=== PATIENT | female | born 1985 | race Asian ===

== ENCOUNTER 2017-11-28 18:03 | Emergency (ER) | payer MEDICAID ==
[~2017-11-28] VITALS: Ht 162.6 cm; Wt 56.0 kg
[2017-11-28] MEDS ORDERED: ZIPR20CA2 PO (19:05)
[2017-11-28] MEDS ORDERED: ziprasidone 20mg capsule PO ONE (19:11)
[2017-11-28 19:26] VITALS: BP 111/72
== END 2017-11-28 19:33 | disposition home or self-care (01) ==
LOC: ER 18:04
DX: F20.9 Schizophrenia, unspecified (principal); F31.9 Bipolar disorder, unspecified; F15.10 Other stimulant abuse, uncomplicated; R06.02 Shortness of breath; Z76.0 Encounter for issue of repeat prescription
CPT/HCPCS: 99283; 99284

== ENCOUNTER 2017-12-17 11:18 | Emergency (ER) | payer MEDICAID ==
[~2017-12-17] VITALS: Ht 162.6 cm; Wt 59.2 kg
[~2017-12-17 11:18] MED LIST: ZIPR20CA2 PO
[2017-12-17 11:24] VITALS: BP 116/76
[2017-12-17] MEDS ORDERED: ZIPR20CA2 PO (11:56)
== END 2017-12-17 12:04 | disposition home or self-care (01) ==
LOC: ER 11:19
DX: F20.9 Schizophrenia, unspecified (principal); F31.9 Bipolar disorder, unspecified; F15.90 Other stimulant use, unspecified, uncomplicated; Z79.899 Other long term (current) drug therapy
CPT/HCPCS: 99283

== ENCOUNTER 2018-01-03 19:06 | Emergency (ER) | payer MEDICAID ==
[~2018-01-03] VITALS: Ht 162.6 cm; Wt 59.0 kg
[2018-01-03 19:12] VITALS: BP 121/82
[2018-01-03] MEDS ORDERED: ziprasidone 20mg capsule PO SCH (20:30)
[2018-01-03] MEDS ORDERED: ziprasidone 20mg capsule PO ONE (20:30)
== END 2018-01-03 20:45 | disposition home or self-care (01) ==
LOC: ER 19:06
DX: F20.9 Schizophrenia, unspecified (principal); F31.9 Bipolar disorder, unspecified; F15.90 Other stimulant use, unspecified, uncomplicated; Z76.0 Encounter for issue of repeat prescription
CPT/HCPCS: 99284

== ENCOUNTER 2018-03-30 16:02 | Emergency (ER) | payer MEDICAID ==
[~2018-03-30] VITALS: Ht 162.6 cm; Wt 59.0 kg
[2018-03-30 17:12] LABS: CLARITY,URINE CLOUDY (Clear); COLOR,URINE YELLOW (Yellow); GLUCOSE, URINE NEGATIVE (Neg); KETONES,URINE NEGATIVE (Neg); LEUKOCYTE ESTERASE ,URINE LARGE (Neg); NITRITES, URINE NEGATIVE (Neg); OCCULT BLOOD,URINE NEGATIVE (Neg); PROTEIN,URINE NEGATIVE (Neg); UROBILINOGEN,URINE 0.2 E.U/dL (0.2-1.0)
[2018-03-30 17:13] LABS: URINE HCG POSITIVE (NEG)
[2018-03-30 17:14] LABS: BASOPHILS # (AUTO) 0.1 X10'3 (0-0.2); EOSINOPHILS # (AUTO) 0.2 X10'3 (0-0.9); EOSINOPHILS % (AUTO) 2.5 % (0-6); HEMATOCRIT 36.5 % (35.0-45.0); HEMOGLOBIN 12.3 g/dl (12.0-16.0); LYMPHOCYTES # (AUTO) 2.3 X10'3 (1.1-4.8); LYMPHOCYTES % (AUTO) 29.4 % (21-51); MEAN CORPUSCULAR HEMOGLOBIN 27.2 PG (27.0-31.0); MEAN CORPUSCULAR HGB CONC 33.8 g/dL (33.0-36.5); MEAN CORPUSCULAR VOLUME 80.6 FL (78-98); MONOCYTES # (AUTO) 0.6 X10'3 (0-0.9); MONOCYTES % (AUTO) 8.1 % (2-12); NEUTROPHILS # (AUTO) 4.6 X10'3 (1.8-7.7); PLATELET COUNT 374 X10'3 (140-440); RED BLOOD COUNT 4.53 X10'6 (4.20-5.60); RED CELL DISTRIBUTION WIDTH 15.3 % (11.5-14.5); WHITE BLOOD COUNT 7.7 X10'3 (4.5-11.0)
[2018-03-30 17:15] LABS: UA COLLECTION TYPE VOIDED
[2018-03-30 17:17] LABS: MUCUS STRANDS MODERATE /LPF (Neg); SQUAMOUS EPITHELIAL CELL,UR MODERATE /LPF (FEW); WBC,URINE 20-30 /HPF (0-4)
[2018-03-30 17:18] LABS: BACTERIA,URINE 2+ /HPF (Neg); RBC,URINE 0-2 /HPF (0-2)
[2018-03-30 17:30] LABS: ALANINE AMINOTRANSFERASE 15 U/L (12-78); ALBUMIN 3.5 G/DL (3.4-5.0); ALBUMIN/GLOBULIN RATIO 0.9 (1.1-1.5); ALKALINE PHOSPHATASE 99 IU/L (46-116); ANION GAP 11 (8-16); ASPARTATE AMINO TRANSFERASE 12 U/L (10-37); BILIRUBIN,TOTAL 0.2 MG/DL (0.1-1.0); BLOOD UREA NITROGEN 8 MG/DL (7-18); BUN/CREATININE RATIO 10.3 (6.6-38.0); CALCIUM 8.7 MG/DL (8.5-10.1); CHLORIDE 105 MMOL/L (99-107); CREATININE 0.78 MG/DL (0.40-0.90); GLUCOSE 92 MG/DL (70-104); POTASSIUM 3.5 MMOL/L (3.5-5.1); SODIUM 143 MMOL/L (135-145); TOTAL CARBON DIOXIDE 26.7 MMOL/L (24-32); TOTAL PROTEIN 7.3 G/DL (6.4-8.2); eGFR 87 ML/MIN
[2018-03-30 17:42] LABS: URINE AMPHETAMINE SCREEN NEGATIVE (Neg); URINE BARBITUATE SCREEN NEGATIVE (Neg); URINE BENZODIAZEPINES SCREEN NEGATIVE (Neg); URINE CANNABINOID SCREEN NEGATIVE (Neg); URINE COCAINE SCREEN NEGATIVE (Neg); URINE METHADONE SCREEN NEGATIVE (Neg); URINE OPIATE SCREEN NEGATIVE (Neg); URINE PHENCYCLIDINE SCREEN NEGATIVE (Neg)
[2018-03-30 17:47] LABS: ETHANOL < 0.010 GM/DL (0.0-0.010)
[2018-03-30] MEDS: sulfamethoxazole/trimethoprim DS (800/160mg) tablet PO SCH ×2 (18:24→20:00)
[2018-03-30] MEDS: ziprasidone 20mg capsule PO SCH ×2 (18:25→20:00)
--- NOTE | 2018-03-30 18:45 | NUR ---
Telepsych consult referral made
--- NOTE | 2018-03-30 19:55 | NUR ---
The patient is a 32 year old female who presented to the ER via EMS from [facility] on a 5150 for being a danger to herself. She initally was taken to [facility] for a crisis appointment by her family with suicidal intent with a plan to use a gun or hang herself. 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 On the medical clearance she was also positive for a UTI and was started on abx. The patient has been taking geodon off and on but stated she has taken any for one month. She denies having a psychiatrist in the community and states she has in the past had the geodon prescribed by her PCP. She stated that she has been having voices for the past two years. She stated that she hears constant voices of converstations making negative comments about her. She denies that the voices are telling her to kill herself. She also is having visual hallucinations of faces, black streaks, lights. She also reports high levels of paranoia that some one might kill her or her family. She stated that she is feeling agiated, irritable and anxious 10/10 "Because I over think things a lot" She Reports she has been sleeping only 4 hours of sleep per night that is broken sleep. She is asking for medications to "knock me out" She currently is unemployed and living with her brother and mother. She is estranged from her young children and has no contact with them "Because of the way I am" She reports she has been arrested twice for being under the influence of methamphatamine. She currently denies symptoms of a UTI. Patient educated to UTI, prevention, treatment and medication ordered.
--- NOTE | 2018-03-30 22:24 | NUR ---
The patient currently appears to be asleep on her bed. Telepsych is still pending
--- NOTE | 2018-03-31 00:07 | NUR ---
Report given to telepyschiatrist.
[2018-03-31] MEDS: nitrofuran/nitrofuran macrocrysal 100 MG capsule PO SCH ×2 (01:11→11:14)
--- NOTE | 2018-03-31 01:19 | NUR ---
Report from psychiatrist reviewed with Dr. Balderas. Because the patient is the plan is to stop the geodon for now and change the antibiotic for her UTI to Macrobid. An EKG will be obtained in the am. The quanatative HCG will be added to labs already drawn. Spoke with the pharmacy regarding the antibiotic and the plan is to start the first dose in the am because she already had the other antibiotic at [facility].
[2018-03-31 01:41] LABS: BETA HCG,QUANTITATIVE 220 mIU/ml
--- NOTE | 2018-03-31 02:58 | NUR ---
The patient appears to be asleep at this time
--- NOTE | 2018-03-31 04:07 | NUR ---
The patient appears to be asleep
--- NOTE | 2018-03-31 05:13 | NUR ---
The patient appears to be sleeping at this time
[2018-03-31 05:48] VITALS: BP 103/69
--- NOTE | 2018-03-31 10:30 | NUR ---
SLEEPING ALL MORNING. RESP UNLABORED. PATIENT AWAKENED BRIEFLY FOR BREAKFAST AND WENT BACK TO SLEEP.
--- NOTE | 2018-03-31 13:15 | NUR ---
RELIEVING RN FOR LUNCH, PT IS SLEEPING QUIETLY ON BED, LUNCH AT BEDSIDE
--- NOTE | 2018-03-31 14:59 | NUR ---
TC FROM [facility] ([facility]) INFORMING THAT PATIENT WILL BE ACCEPTED TO THE [facility]. STAFF WILL BE COMING TO GET PATIENT IN APPROX ONE HOUR.
--- NOTE | 2018-03-31 15:53 | NUR ---
STAFF FROM [facility] HERE TO MANAGER SUMMER PATIENT. ALL BELONGINGS RETURNED TO PATIENT. DEPARTED PER , WITH BEHAVIORAL HEALTH STAFF, IN GOOD CONDITION.
[2018-03-31] MEDS ORDERED: NITR100C6 PO (17:42)
== END 2018-03-31 14:45 ==
LOC: ER 16:02
DX: F25.9 Schizoaffective disorder, unspecified (principal); N39.0 Urinary tract infection, site not specified; R45.851 Suicidal ideations; F31.9 Bipolar disorder, unspecified; F15.10 Other stimulant abuse, uncomplicated
CPT/HCPCS: 36415; 80053; 80305; 80320; 81001; 81025; 84443; 84702; 85025; 99285

== ENCOUNTER 2018-03-31 14:30 | Inpatient (IN) | payer MEDICAID ==
[~2018-03-31] VITALS: Ht 160 cm; Wt 61.2 kg
[2018-03-31 16:16] VITALS: BP 96/64
[2018-03-31] MEDS ORDERED: magnesium hydroxide 30ml (MOM) UD suspension PO PRN (16:35)
[2018-03-31] MEDS ORDERED: tuberculin, purif. prot. deriv. 5 units/0.1ml ID ONE (16:35)
[2018-03-31] MEDS ORDERED: mag hydrox/Alum hydrox/simeth 30ml oral suspension PO PRN (16:35)
[2018-03-31] MEDS ORDERED: acetaminophen 325mg tablet PO PRN ×2 (16:35)
[2018-03-31] MEDS ORDERED: FLU VACC QUAD 2018(5 YR UP)/PF 60 MCG/0.5 ML SYRINGE IM ONE (17:00)
[2018-03-31] MEDS ORDERED: NITR100C6 PO (17:42)
--- NOTE | 2018-03-31 17:47 | NUR ---
ADMIT NOTE Pt is a 32 y/o female with a reported hx of Schizophrenia and Bipolar D/O brought to [facility] ED on a 5150 for DTS at [facility] due to making statements of feeling like she wanted to kill herself with a plan to use a gun or hang herself. Reports she stopped taking Geodon ~1 month ago. Has a history of three previous attempts. Pt admitted to unit at 1600 from ED via wheelchair, escorted by two staff members. Belongings checked and inventoried. Pt oriented to unit and advised that she is on a 5150. Pt has a hx of meth use, last used 1-2 weeks ago. Smokes 1/2 pack of cigarettes daily. +HCG, quantitative 220 MIU/ML. Pt states that she does not believe she is . Pt is requesting "something to knock me out". States that she just wants to sleep because other people are reading her thoughts.
--- NOTE | 2018-03-31 17:55 | NUR ---
Nursing Admit Note: Chief Complaint: S/I Legal hold: 5150 Client on involuntary status for DTS Report received from nurse with use of SBAR: N/A Why are they here: Patient presented to [facility] stating I feel like I want to kill myself every day. I want to kill myself with a gun or hang myself, Im trying to find a gun now. [facility] wrote 5150 hold for danger to self. Diagnosis/presenting symptoms: Hx of schizoaffective disorder, bipolar type, S/I with plan Assessment What has happened this shift: Patient is a 32yr old with hx of schizoaffective disorder, bipolar type. She is . She presented to the ED with S/I that started a month ago. Patient was taking Geodon 40mg and ran out a month ago and began feeling suicidal. There have been past attempts that include hanging, drowning, and gasing up the car. Patient presents to unit and is met resting in her bed. She states that she is very tired and would like to go to sleep. She is cooperative with admission process. She states Can you get me something so I can quit thinking other people are reading my thoughts. [facility] states that she knows that they cannot but cannot stop thinking it. She states that she also hears what others are thinking. She reports that when the voices increased she became depresses and that is why she is suicidal. She states that she would like to take a gun and shoot herself in the head. She reports not having assess currently but it she gets her hands on one she will. She tested positive for in the ER. She has 3 other children that do not live with her. She states she didnt know she was , 3 days after last sexual encounter she took the morning after pill. She reports she has used meth for a long time and last smoked it 1week ago. S/I, H/I: suicidal thoughts as stated above A/VH: as stated above Sleep: reports only 4hours of broken sleep at night ADL's: Independent, requests to shower Group attendance: N/A Were meds taken: N/A Any med S/E: N/A Mental Status Exam Appearance: appropriate, asks to shower Eye contact: direct Behavior: cooperative, friendly, anxious Speech: soft tone, normal rate/rhythm Mood: reports depression Affect: restricted Thought process: hears other peoples thoughts and thinks people can read her mind Thought Content: paranoid that others can read her mind Cognition: A&Oxs4 Insight: fair to good Judgment: poor Interventions PRN's used: None Therapeutic interventions: 1:1 communication with RN that included active listening with positive feedback, maintained a safe and therapeutic environment, provided medication education, and maintained Q 15 min safety checks. Restraints/seclusion/emergency medication: N/A Justification of Continued Inpatient Treatment: Patient currently in crisis. Continue therapeutic support in hygiene and medication management to provide stabilization, prevent decompensation, decreasing risk to patient and readmittance.
[2018-03-31 19:00] VITALS: BP 104/65
[2018-03-31] MEDS: diphenhydrAMINE 25mg capsule PO PRN (21:08)
[2018-03-31] MEDS: nitrofuran/nitrofuran macrocrysal 100 MG capsule PO SCH (21:08)
[2018-03-31] MEDS ORDERED: risperiDONE 0.5mg tablet PO ONE (21:50)
--- NOTE | 2018-04-01 00:59 | NUR ---
Nursing Admit Note: Chief Complaint: S/I Legal hold: 5150 Client on involuntary status for DTS Report received from nurse with use of SBAR:yes, Devora RN Why are they here: Patient presented to [facility] stating I feel like I want to kill myself every day. I want to kill myself with a gun or hang myself, Im trying to find a gun now. [facility] wrote 5150 hold for danger to self. Diagnosis/presenting symptoms: Hx of schizoaffective disorder, bipolar type, S/I with plan Assessment What has happened this shift: Patient relaxes and watches TV in rec room with other patients. She is friendly and engages in conversation. She makes good eye contact and is cooperative with physical assessment. She denies feeling depressed or suicidal when asked. She does admit to having auditory hallucinations and says, "I hear voices all day long, and I feel like everyone in the world can read my thoughts." "That is why I was feeling suicidal, because I feel like people can hear what I am thinking." Plane Runner asks patient how she feels about having a positive test and she responds," I think there's something wrong with that because I just had my period at the beginning of the month." "And I have been bleeding lightly, like the beginning of my period today." She denies having any pain along with the bleeding. Plane Runner informed her that during early implantation can cause light spotting and again she denied being . She also says that she thinks she is ready to go home tomorrow. Patient was given her PPD and flu vaccine. Med education discussed with patient, patient verbalized understanding. S/I, H/I: patient denies any current SI A/VH: reports hearing voices "all day long" Sleep: see sleep assessment notation ADL's: Independent Group attendance: tools administrator, no groups Were meds taken: yes Any med S/E: None reported, none observed Mental Status Exam Appearance: in green hospital scrubs, clean Eye contact: direct Behavior: cooperative, watches TV and engages in conversations with staff Speech: soft tone, normal rate/rhythm Mood: cooperative Affect: bland Thought process: thinks people can read her mind Thought Content: paranoid that others can read her mind Cognition: A&Oxs4 Insight: fair to good Judgment: poor Interventions PRN's used: None Therapeutic interventions: 1:1 communication with RN that included active listening with positive feedback, maintained a safe and therapeutic environment, provided medication education, and maintained Q 15 min safety checks. Restraints/seclusion/emergency medication: N/A Justification of Continued Inpatient Treatment: Patient currently in crisis. Continue therapeutic support in hygiene and medication management to provide stabilization, prevent decompensation, decreasing risk to patient and readmittance.
--- NOTE | 2018-04-01 05:42 | NUR ---
READ PPD Addendum: 04/01/18 at 0543 by Floridalma Randhawa RN Amended: Links added.
[2018-04-01 07:40] VITALS: BP 106/59
[2018-04-01] MEDS: nitrofuran/nitrofuran macrocrysal 100 MG capsule PO SCH (08:10)
[2018-04-01 10:31] LABS: HEMOGLOBIN A1C 5.2 % (4.5-6.2)
[2018-04-01 10:35] LABS: CHOL/HDL RATIO 2.8 (0.00-4.99); CHOLESTEROL 153 MG/DL (0-200); HDL CHOLESTEROL 54 MG/DL (35-60); LDL CHOLESTEROL 95 MG/DL (50-100); TRIGLYCERIDES 58 MG/DL (20-135)
[2018-04-01] MEDS: MESSAGE TO PHARMACY PO NR (10:43)
--- NOTE | 2018-04-01 17:33 | NUR ---
Nursing Admit Note: Chief Complaint: S/I Legal hold: 5150 Client on involuntary status for DTS Report received from nurse with use of SBAR: Floridalma RN Why are they here: Patient presented to [facility] stating I feel like I want to kill myself every day. I want to kill myself with a gun or hang myself, Im trying to find a gun now. [facility] wrote 5150 hold for danger to self. Diagnosis/presenting symptoms: Hx of schizoaffective disorder, bipolar type, S/I with plan Assessment What has happened this shift: Patient spent much of the morning sleeping, but to get up for meals and morning group. Patient repeatedly throughout the day stated she wanted to leave and head to explained multiple times the 72 hour process. Patient denies suicidal thoughts at this time but continues to endorse thoughts of feeling that everyone can hear her thoughts and read her mind. Patient also continues to endorse auditory hallucinations; voices telling her that people are reading her mind and her thoughts. When questioned about her , patient did seem to have more acceptance and stated oh, is that really true? When asked if she knew who the father was, she said no. Patient did state that she wanted to go to a rehab to help her with her methamphetamine problem. Patient did attend afternoon group and went on the walk to the [facility] with network security administrator. S/I, H/I: patient denies any current SI A/VH: reports hearing voices "all day long" Sleep: sleepy in am ADL's: Independent Group attendance: yes Were meds taken: yes Any med S/E: None reported, none observed Mental Status Exam Appearance: in green hospital scrubs, clean Eye contact: direct Behavior: cooperative, watches TV and engages in conversations with staff Speech: soft tone, normal rate/rhythm Mood: cooperative Affect: bland Thought process: thinks people can read her mind Thought Content: paranoid that others can read her mind Cognition: A&Oxs4 Insight: fair to good Judgment: poor Interventions PRN's used: None Therapeutic interventions: 1:1 communication with RN that included active listening with positive feedback, maintained a safe and therapeutic environment, provided medication education, and maintained Q 15 min safety checks. Restraints/seclusion/emergency medication: N/A Justification of Continued Inpatient Treatment: Patient currently in crisis. Continue therapeutic support in hygiene and medication management to provide stabilization, prevent decompensation, decreasing risk to patient and readmittance.
[2018-04-01] MEDS: amox tr/potassium clavulanate 500mg/125mg TAB PO SCH (18:02)
[2018-04-01 19:00] VITALS: BP 108/61
[2018-04-01] MEDS ORDERED: risperiDONE 0.5mg tablet PO SCH (21:00)
[2018-04-01] MEDS: diphenhydrAMINE 25mg capsule PO PRN (21:41)
--- NOTE | 2018-04-02 04:25 | NUR ---
Nursing Admit Note: Chief Complaint: S/I Legal hold: 5150 Client on involuntary status for DTS Report received from nurse with use of SBAR: Jason SANCHEZ Why are they here: Patient presented to [facility] stating I feel like I want to kill myself every day. I want to kill myself with a gun or hang myself, Im trying to find a gun now. [facility] wrote 5150 hold for danger to self. Diagnosis/presenting symptoms: Hx of schizoaffective disorder, bipolar type, S/I with plan Assessment What has happened this shift: Patient watched TV in rec room until about 12 am. She is polite and cooperates with assessment but is not very talkative. She denies any current SI or depression. Pt had apelvic ultrasound today 04/01/18 at 14:30 to detect the gestational age of her . The impression on the test read "IMPRESSION: 1. Prominent uterus without evidence of an intrauterine . 2. Prominent endometrium which may be due to timing in menstruation cycle oroccult . 3. Prominent mildly complex left ovarian cyst. 4. Normal bilateral ovarian blood flow." State Epidemiologist will report these findings to daysrift. Patient denies any pain and reports that she has stopped bleeding (yesterday she had reported light spotting.) S/I, H/I: patient denies any current SI A/VH: reports hearing voices "all day long" Sleep: see sleep assessment notation ADL's: Independent Group attendance: shift supervisor melting, no groups Were meds taken: yes Any med S/E: None reported, none observed Mental Status Exam Appearance: in [facility] scrubs, clean, showered Eye contact: direct Behavior: cooperative, watches TV Speech: soft tone, normal rate/rhythm Mood: cooperative, bored Affect: bland Thought process: thinks people can read her mind Thought Content: focused on TV Cognition: A&Oxs4 Insight: fair Judgment: poor Interventions PRN's used: Benadryl for sleep Therapeutic interventions: 1:1 communication with RN that included active listening with positive feedback, maintained a safe and therapeutic environment, provided medication education, and maintained Q 15 min safety checks. Restraints/seclusion/emergency medication: N/A Justification of Continued Inpatient Treatment: Patient currently in crisis. Continue therapeutic support in hygiene and medication management to provide stabilization, prevent decompensation, decreasing risk to patient and readmittance.
[2018-04-02 07:48] VITALS: BP 109/62
[2018-04-02] MEDS: PNV NO.63/IRON,CARBONYL/FA/DHA 1 EACH CAPSULE PO SCH (08:47)
[2018-04-02] MEDS: amox tr/potassium clavulanate 500mg/125mg TAB PO SCH ×2 (08:47→17:39)
[2018-04-02] MEDS: MESSAGE TO PHARMACY PO NR (10:36)
--- NOTE | 2018-04-02 15:16 | NUR ---
Nursing Admit Note: Chief Complaint: S/I Legal hold: 5150 Client on involuntary status for DTS Report received from nurse with use of SBAR: Floridalma SANCHEZ Why are they here: Patient presented to [facility] stating I feel like I want to kill myself every day. I want to kill myself with a gun or hang myself, Im trying to find a gun now. [facility] wrote 5150 hold for danger to self. Diagnosis/presenting symptoms: Hx of schizoaffective disorder, bipolar type, S/I with plan Assessment What has happened this shift: Recieved Pt asleep in bed w/o distress. Patient slept most of morning, getting up for morning meds and meals, but did not attend morning group. Awake and watching tv in afternoon and attended afternoon group. Wanted to leave today, and discussed her 72 hr hold with her. She was pleasant and cooperative with staying for now. Patient denies suicidal thoughts at this time but continues to feeling that others can hear her thoughts and read her mind and also endorses auditory hallucinations of voices telling her that people are reading her mind and her thoughts. Discussed her potential and relation to not taking geodon which she states helps her. S/I, H/I: patient denies any current SI A/VH: reports hearing voices "all day long" Sleep: slept in am ADL's: Independent Group attendance: no Were meds taken: yes Any med S/E: None reported, none observed Mental Status Exam Appearance: in [facility] scrubs, clean Eye contact: direct Behavior: cooperative, watches TV and engages in conversations with staff Speech: soft tone, normal rate/rhythm Mood: cooperative Affect: constricted Thought process: thinks people can read her mind Thought Content: paranoid that others can read her mind Cognition: A&Oxs4 Insight: fair to good Judgment: poor Interventions PRN's used: None Therapeutic interventions: 1:1 communication with RN that included active listening with positive feedback, maintained a safe and therapeutic environment, provided medication education, and maintained Q 15 min safety checks. Restraints/seclusion/emergency medication: N/A Justification of Continued Inpatient Treatment: Patient currently in crisis. Continue therapeutic support in hygiene and medication management to provide stabilization, prevent decompensation, decreasing risk to patient and readmittance. Addendum: 04/02/18 at 1644 by Delmar Santiago RN This is not an admit note. It is a nursing note for day shift on 04/02/18
[2018-04-02 19:00] VITALS: BP 110/63
[2018-04-02] MEDS: diphenhydrAMINE 25mg capsule PO PRN (20:25)
[2018-04-02] MEDS: lactobacillus rhamnosus 10,000 MMU CELLS/CAPSULE PO SCH (20:25)
[2018-04-02] MEDS ORDERED: risperiDONE 0.5mg tablet PO SCH (21:00)
--- NOTE | 2018-04-03 01:34 | NUR ---
Nursing Admit Note: Chief Complaint: S/I Legal hold: 5150 Client on involuntary status for DTS Report received from nurse with use of SBAR: Delmar SANCHEZ Why are they here: Patient presented to [facility] stating I feel like I want to kill myself every day. I want to kill myself with a gun or hang myself, Im trying to find a gun now. [facility] wrote 5150 hold for danger to self. Diagnosis/presenting symptoms: Hx of schizoaffective disorder, bipolar type, S/I with plan Assessment What has happened this shift: Patient is watching TV with her peers. They are watching the food channel and she is enjoying talking about the types of food she likes. She mentions she can't wait to get a cigarette. Patient reports she is feeling "pretty good" today and feels she is ready to go home tomorrow. She denies any SI or depression. S/I, H/I: patient denies any current SI A/VH: "they are better" Sleep: see sleep assessment notation ADL's: Independent Group attendance: risk compliance analyst, no groups Were meds taken: yes Any med S/E: None reported, none observed Mental Status Exam Appearance: clean, brushed her hair Eye contact: direct Behavior: cooperative, watches TV Speech: soft tone, normal rate/rhythm Mood: cooperative, bored Affect: bland Thought process: thinks people can read her mind Thought Content: focused on TV Cognition: A&Oxs4 Insight: fair Judgment: poor Interventions PRN's used: Benadryl for sleep Therapeutic interventions: 1:1 communication with RN that included active listening with positive feedback, maintained a safe and therapeutic environment, provided medication education, and maintained Q 15 min safety checks. Restraints/seclusion/emergency medication: N/A Justification of Continued Inpatient Treatment: Patient currently in crisis. Continue therapeutic support in hygiene and medication management to provide stabilization, prevent decompensation, decreasing risk to patient and readmittance.
[2018-04-03 07:32] VITALS: BP 94/64
[2018-04-03] MEDS: lactobacillus rhamnosus 10,000 MMU CELLS/CAPSULE PO SCH (08:16)
[2018-04-03] MEDS: PNV NO.63/IRON,CARBONYL/FA/DHA 1 EACH CAPSULE PO SCH (08:16)
[2018-04-03] MEDS: amox tr/potassium clavulanate 500mg/125mg TAB PO SCH (08:17)
[2018-04-03] MEDS ORDERED: PNV1CAPS50 PO (16:20)
[2018-04-03] MEDS ORDERED: RISP1TAB3 PO (16:20)
[2018-04-03] MEDS ORDERED: LACT1CAP26 PO (16:20)
[2018-04-03] MEDS ORDERED: AMOX1TAB15 PO (16:20)
[2018-04-03] MEDS ORDERED: DIPH50CA36 PO (16:20)
--- NOTE | 2018-04-03 16:23 | NUR ---
Nursing Note: Patient's 5150 today at 1600. Seen by Rambo Lui and did not meet criteria for involuntary treatment. Patient to be discharged to home in the care of her brother and mother. Meds will be called into [facility].
--- NOTE | 2018-04-03 17:12 | NUR ---
Discharge Note: Patient discharged to home with all her personal belongings and medications via ambulatory. Escorted to lobby by staff member Elda where brother was waiting to drive patient home. Patient excited to be leaving the unit. Stated "I've been living the drug life. I'm ready to stop and go into rehab. And take my meds." Discharge medications faxed into 24 hour [facility]. Patient informed where to go to pharmacy picking technician medication. Patient smokes and is not interested in nicotine replacement supplements. She denies suicidal ideation.
== END 2018-04-03 17:12 | disposition home or self-care (01) | DRG 566 ==
LOC: ADULT MH 14:30
PROVIDERS: ADMIT Psychiatry & Neurology Psychiatry; ATTEND Psychiatry & Neurology Psychiatry
DX: O99.340 Other mental disorders complicating pregnancy, unspecified trimester (principal); R45.851 Suicidal ideations; F25.9 Schizoaffective disorder, unspecified; F29 Unspecified psychosis not due to a substance or known physiological condition; O23.40 Unspecified infection of urinary tract in pregnancy, unspecified trimester; F15.10 Other stimulant abuse, uncomplicated; F31.9 Bipolar disorder, unspecified; Z23 Encounter for immunization; Z71.51 Drug abuse counseling and surveillance of drug abuser; Z3A.00 Weeks of gestation of pregnancy not specified
CPT/HCPCS: 36415; 76830; 76857; 80061; 83036; 84443; 87070; Q0163; Q2037

== ENCOUNTER 2019-06-10 15:27 | Emergency (ER) | payer MEDICAID ==
[~2019-06-10] VITALS: Ht 162.6 cm; Wt 72.0 kg
[~2019-06-10 15:27] MED LIST changes: +AMOX1TAB15 PO; +DIPH50CA36 PO; +LACT1CAP26 PO; +PNV1CAPS50 PO; +RISP1TAB3 PO; -ZIPR20CA2 PO
[2019-06-10 15:30] VITALS: BP 116/78
[2019-06-10] MEDS ORDERED: RISP4TAB7 PO (15:44)
[2019-06-10] MEDS ORDERED: RISP3TAB11 PO (15:44)
[2019-06-10] MEDS ORDERED: risperiDONE 2mg tablet PO ONE (15:45)
== END 2019-06-10 15:57 | disposition home or self-care (01) ==
LOC: ER 15:28
DX: F31.9 Bipolar disorder, unspecified (principal); Z76.0 Encounter for issue of repeat prescription; F15.10 Other stimulant abuse, uncomplicated; F20.9 Schizophrenia, unspecified; Z79.899 Other long term (current) drug therapy
CPT/HCPCS: 99281; 99283

== ENCOUNTER 2019-08-31 22:00 | Emergency (ER) | payer MEDICAID ==
[~2019-08-31 22:00] MED LIST changes: +RISP3TAB11 PO; +RISP4TAB7 PO
--- NOTE | 2019-08-31 22:37 | NUR ---
ATTEMPTED TO CALL PT ON CELL PHONE LISTED IN CHART - NO ANSWER, MSG LEFT
== END 2019-08-31 23:19 | disposition left against medical advice (07) ==
LOC: ER 22:02
DX: R42 Dizziness and giddiness (principal); Z53.21 Procedure and treatment not carried out due to patient leaving prior to being seen by health care provider

== ENCOUNTER 2019-12-24 10:46 | Emergency (ER) | payer MEDICAID ==
[~2019-12-24] VITALS: Ht 162.6 cm; Wt 70.3 kg
[~2019-12-24 10:46] MED LIST changes: -RISP1TAB3 PO; +RISP1TAB98 PO
[2019-12-24 10:51] VITALS: BP 141/96
--- NOTE | 2019-12-24 11:10 | NUR ---
Called to lobby by [employer], pt refusing to come back. Spoke w/ pt who stated she "need help," but was refusing to move from lobby chair. Pt unable to articulate why she did not want to be seen after indicating she "need help." Pt continued to refuse. Explained room would be going to different pt at which point pt started to head into ED w/ Nawaf, tech's assistance as he had a rapport w/ her and was assisting in redirection toward ed room. Pt broke from him, with both he and I trying to stop her. Security was contacted as we continued to get her to come in as disturbed thoughts noted through this exchange. Pt communicated paranoid thoughts saying "they're after me" "they want to keep me locked up." Pt continued to refuse tx and was allowed to leave after calming down enough to indicte a greater level of cognition. leslye collazo notified.
== END 2019-12-24 11:41 | disposition left against medical advice (07) ==
LOC: ER 10:47
DX: Z00.8 Encounter for other general examination (principal); Z53.21 Procedure and treatment not carried out due to patient leaving prior to being seen by health care provider